=== PATIENT | male | born 1935 | race Caucasian/White ===

== ENCOUNTER 2025-10-30 20:24 | Outpatient (CLI) | payer MEDICARE, SELFPAY | END 2025-10-30 20:25 | disposition home or self-care (01) | LOC: SLEEP 20:31 | PROVIDERS: Referring Provider Family Medicine; Visit Provider Internal Medicine Pulmonary Disease | DX: G47.33 Obstructive sleep apnea (adult) (pediatric) (principal); G47.36 Sleep related hypoventilation in conditions classified elsewhere | CPT/HCPCS: 95810 ==